=== PATIENT | male | born 1955 | race Caucasian/White ===

== ENCOUNTER 2020-08-29 07:04 | Outpatient (CLI) | payer MEDICARE | END 2020-08-29 23:59 | disposition home or self-care (01) | LOC: RAD 07:04 | PROVIDERS: ATTEND Internal Medicine | DX: R06.02 Shortness of breath (principal); J98.6 Disorders of diaphragm; R91.1 Solitary pulmonary nodule; J98.11 Atelectasis | CPT/HCPCS: 71250; 76000 ==